=== PATIENT | female | born 2000 | race Caucasian/White ===

== ENCOUNTER 2022-01-10 14:59 | Emergency (ER) | payer OTHER, SELFPAY ==
[2022-01-10] VITALS (24 sets, daily range): BP systolic 104–125; BP diastolic 62–77; PULSE 61–90; RESP 14–19; TEMP 36.6–36.8; O2SAT 92–100
--- NOTE | ~2022-01-10 | CT_ITS ---
EXAMINATION: CT abdomen pelvis w con DATE: 01/10/2022 23:09 INDICATION: Left lower quadrant abdominal pain. TECHNIQUE: Computed tomography (CT) of the abdomen and pelvis was performed with 100 mL Omnipaque 350 intravenous contrast. Automated exposure control and iterative reconstruction technique were employe d. The dose-length product was 201.67 mGy-cm. COMPARISON: None. FINDINGS: The visualized portions of the lung bases are clear without pneumonia or pleural effusion. The heart size is normal. No pericardial effusion. The liver, gallbladder, spleen, pancreas, adrenal glands, and kidneys are normal. There are no dilated loops of bowel. There are changes of appendectom y. There are no pathologically enlarged lymph nodes. There is no free intraperitoneal fluid. The bone s are unremarkable. IMPRESSION: 1. No specific etiology for the patient's symptoms. Reviewed, dictated and finalized at location A.
--- NOTE | ~2022-01-10 | XR_ITS ---
EXAMINATION: XR chest 1V portable Exam Date/Time: 01/10/2022 17:15 CDT HISTORY: cp/ colin, DIZZINESS X TODAY, NO CARDIAC HX, NO LUNG HX Comparison: None available. RESULT: Lines, tubes, and devices: None. Lungs and pleura: Clear. Cardiomediastinal silhouette: Stable. Other: No acute osseous or upper abdominal finding. IMPRESSION: No acute cardiopulmonary process. Reviewed, dictated and finalized at location K.
--- NOTE | ~2022-01-10 | CT_ITS ---
EXAMINATION: CT brain wo con DATE: 01/10/2022 23:03 INDICATION: Headache. Dizziness. TECHNIQUE: Computed tomography (CT) of the head was performed without intravenous contrast. The mA wa s adjusted according to patient size. Iterative reconstruction technique was employed. The dose-lengt h product was 605.33 mGy-cm. COMPARISON: None FINDINGS: There is no intracranial hemorrhage, acute infarction, or abnormal intracranial mass lesion . The ventricles are normal in size. Cavum septum callosum and vergae are noted. The orbits are bella l. The paranasal sinuses are clear. The mastoid air cells are normal. IMPRESSION: 1. Normal brain. Reviewed, dictated and finalized at location A. IMPRESSION: 1. Normal brain.
--- NOTE | 2022-01-10 15:09 | ECG_ITS ---
Measurements Intervals [place] Rate: 73 P: 31 AK: 101 QRS: 78 QRSD: 103 T: 44 QT: 373 QTc: 411 Interpretive Statements SINUS RHYTHM WITH SHORT AK INTERVAL NO PREVIOUS ECG AVAILABLE FOR COMPARISON Electronically Signed On 01-10-2022 19:48:12 CDT by Danielle Wayne M.D.
[2022-01-10 15:42] LABS: Basophils Absolute Auto 0.1 K/mm3 (0.0-0.1); Basophils Percent Auto 0.6 % (0.2-1.2); Eosinophils Percent Auto 0.4 % (0-4.4); Hematocrit 37.1 % (37.0-47.0); Hemoglobin 12.4 g/dL (12.0-15.0); Immature Granulocyte Absolute 0.01 K/mm3 (0.00-0.031); Immature Granulocyte Percent A 0.1 % (0-0.5); Lymphocytes Absolute Auto 1.28 K/mm3 (0.9-3.2); Mean Corpuscular HGB Conc 33.4 g/dl (32-36); Mean Corpuscular Hemoglobin 30.7 pg (26-34); Mean Corpuscular Volume 91.8 fl (80-100); Mean Platelet Volume 9.8 fl (7.4-10.4); Monocytes Absolute Auto 0.6 K/mm3 (0.1-0.6); Monocytes Percent Auto 6.8 % (2.6-8.5); Neutrophils Absolute Auto 6.6 K/mm3 (1.3-6.7); Neutrophils Percent Auto 77.1 % (45.5-73.1); Platelet Count Result 290 k/mm3 (150-375); Red Blood Count 4.04 M/mm3 (4.2-5.4); Red Cell Distribution Width 11.7 % (11.5-14.5); White Blood Count 8.5 K/mm3 (4.5-10.0)
[2022-01-10 15:49] LABS: Appearance Urine Clear (Clear); Bilirubin Urine Negative (Negative); Blood Urine 1+ (Negative); Color Urine Yellow (Yellow); Glucose Urine UA Negative (Negative); Ketones Urine Negative (Negative); Leukocyte Esterase Ur Negative LEU/UL (Negative); Nitrate Urine Negative (Negative); Protein Urine Negative (Negative); Urobilinogen Urine 0.2 mg/dL (<2.0)
[2022-01-10 16:01] LABS: Mucus Urine Rare /lpf; RBC Urine 0-2 /hpf (0-2); Squamous Epithelial Cell Urine Rare /hpf (Few); WBC Urine 0-3 /hpf
[2022-01-10 16:02] LABS: Add Urine Microscopic? YES
[2022-01-10 16:07] LABS: Alanine Aminotransferase 16 U/L (6-35); Albumin Level 4.8 g/dL (3.7-5.6); Alkaline Phosphatase 55 U/L (45-116); Anion Gap 10 mmol/L (8-16); Aspartate Amino Transferase 30 U/L (14-36); Bilirubin,Total 0.9 mg/dL (0.2-1.3); Blood Urea Nitrogen 11 mg/dL (8-21); Calcium 9.3 mg/dL (8.9-10.7); Carbon Dioxide 23 mmol/L (22-30); Chloride 106 mmol/L (98-107); Estimated CRCL calculation 113 ml/min; Estimated Glomerular Filt Rate > 60; Glucose 96 mg/dL (65-110); Lipase 28 U/L (23-300); Potassium 4.1 mmol/L (3.4-5.0); Sodium 139 mmol/L (134-143)
--- NOTE | 2022-01-10 17:13 | ED.GENADULT ---
HPI - General Adult General Chief complaint: Unspecified Stated complaint: Dizziness Time Seen by Provider: 01/10/22 16:28 History of Present Illness HPI narrative: 21-year-old female with only past medical history of celiac disease states that she was in the shower earlier when she stepped out and started feeling vertigo, she is also endorsing some shortness of breath and chest discomfort. Also some abdominal discomfort and diarrhea. Denies it being positional. Related Data Allergies Allergy/AdvReac Type Severity Reaction Status Date / Time shellfish derived Allergy Anaphylaxis Verified 01/10/22 16:26 Review of Systems Review of Systems: CONST: No fever. HEENT: No sore throat or runny nose C/V: Chest discomfort RESP: Mild shortness of breath GI: Reports abdominal pain, diarrhea : No dysuria. M/S: No joint pain. SKIN: No rash. NEURO: Vertigo, no focal numbness/weakness PSYCH: [No depression] [facility] Past Medical History Medical History (Updated 01/10/22 @ 19:36 by Dominique Baker MD) Celiac disease Social History Social History (Updated 01/10/22 @ 17:37 by Dominique Baker MD) Smoking status: Never smoker Exam Narrative: EXAMINATION OF ORGAN SYSTEMS/BODY AREAS: Constitutional: Vital signs per nursing GENERAL: Resting comfortably in bed HEAD: Normal with no signs of head trauma. EYES: Nystagmus but otherwise EOMI, PERRL ENT: Hearing grossly intact LUNGS: Nonlabored breathing. HEART: [Regular rate and rhythm] ABD: [Soft], [nontender to palpation] EXT: Normal range of motion SKIN: [No rashes or lesions.] NEURO: [Alert and oriented x 3. No gross focal sensory or strength deficits.] Negative Romberg but when tried to ambulate, patient unsteady on her feet PSYCH: Tired affect Course Vital Signs Vital signs: Vital Signs Temperature 98.2 F 01/10/22 15:03 Pulse Rate 71 01/10/22 15:03 Respiratory Rate 14 01/10/22 15:03 Blood Pressure 117/72 01/10/22 15:03 Pulse Oximetry 100 01/10/22 15:03 Temperature 98.2 F 01/10/22 15:03 Pulse Rate 90 01/10/22 18:06 Respiratory Rate 18 01/10/22 18:06 Blood Pressure 117/77 01/10/22 18:06 Pulse Oximetry 100 01/10/22 18:06 Medical Decision Making [facility] Narrative Medical decision making narrative: 21-year-old female presenting with sudden onset vertigo that started at noon today, stable, on exam she does have nystagmus and difficulty ambulating due to the vertigo, but no other focal neurologic deficits, normal voice and cranial nerves II through XII intact, NIH stroke scale of 0. She is treated with meclizine then valium however still unable to ambulate and stumbling when stood up and tried to walk. On HINTS exam this does seem consistent with possible central cause; I feel she should have an MRI for further workup in case of tumor or other cause of her symptoms. Her mother would like her transferred to [place] due to insurance issues; she also does not want CT imaging here due to same reason. D/w [facility] transfer center and Dr. Thrasher. At this time patient would like to leave against medical advice as she cannot afford the testing and hospital stay; I did explain that there may be some financial help for her but she would like to leave; she no longer wants to wait. Explained concern for possible emergent issues including tumor or CVA, patient and family are understanding and able to make their own choices, alert and oriented, and understanding of the consequences of leaving at this time which include worsening symptoms and possible neurologic damage or . AMA paperwork will be filled out. I cannot hold her against her will. They promise they will try to go another ER in the morning in [place]. Vital Signs Vital Signs: Vital Signs Temperature 98.2 F 01/10/22 15:03 Pulse Rate 71 01/10/22 15:03 Respiratory Rate 14 01/10/22 15:03 Blood Pressure 117/72 01/10/22 15:03 Pulse Oximetry 100 01/10/22 15:03 Temperature 98.2 F 0
[2022-01-10] MEDS: MECLIZINE HCL 25 MG TABLET PO ×2 (17:18→21:38)
[2022-01-10] MEDS: diazePAM (*CRX) 5 MG TABLET PO (18:05)
--- NOTE | 2022-01-10 19:14 | PC.NURSE ---
Report received from FRANK Stern. This nurse assumed care of patient at this time.
--- NOTE | 2022-01-10 20:19 | PC.NURSE ---
1952 Patient and her mother verbalized they will leave AMA. When this nurse went in with AMA papers, patient and her mother decided to accept being admitted here. proof carrier went with this nurse to speak about process of admission. Patient stated she needed more time to decide on what to do. Patient stated she wanted to be admitted for an MRI. ERP and proof carrier notified. 2011 Dary from [facility] transfer center calls to inform that the patient has been accepted to [facility] and would need a COVID swab and IV access to be transferred. That the patient would be on a wait list for a bed. This nurse informed Dary of the patients decision to possibly be admitted but they are unsure at this time. Dary stated to call back when patient decides what she would like to do. ERP and proof carrier notified.
[2022-01-10] MEDS: SODIUM CHLORIDE 0.9% IV 1,000 ML 999 ML IV CONT (20:44)
[2022-01-10] MEDS: KETOROLAC 15 MG/ML VIAL (*BKC) IV PUSH (20:45)
[2022-01-10] MEDS: METOCLOPRAMIDE HCL INJ 10 MG/2 ML VIAL IV PUSH (20:45)
[2022-01-10] MEDS: diphenhydrAMINE HCl INJ 50 MG/ML VIAL 25 MG IV PUSH (20:45)
[2022-01-10 21:25] LABS: SARS-CoV-2 RNA PCR Negative
--- NOTE | 2022-01-10 22:55 | PC.NURSE ---
Patient taken to CT via stretcher.
--- NOTE | 2022-01-10 23:10 | PC.NURSE ---
Assumed care of pt at this time. Report taken from Cat Y RN. Pt alert and upright on stretcher. Pt reports abd pain and dizziness have improved since medication administration, but states symptoms are still there. Pt and family updated on POC.
--- NOTE | 2022-01-10 23:57 | PC.NURSE ---
Report given to María MARIE
[2022-01-11] VITALS: PULSE 78; RESP 14; O2SAT 98
[2022-01-11 00:01] VITALS: BP 104/62; PULSE 60; RESP 14; O2SAT 98
[2022-01-11 01:05] VITALS: BP 111/62; PULSE 83; RESP 16; O2SAT 99
== END 2022-01-11 01:07 | disposition home or self-care (01) ==
PROVIDERS: Emergency Medicine; Emergency Provider General Practice
DX: R42 Dizziness and giddiness (principal); R10.32 Left lower quadrant pain; G43.909 Migraine, unspecified, not intractable, without status migrainosus; K90.0 Celiac disease; Z20.822 Contact with and (suspected) exposure to COVID-19; Z53.29 Procedure and treatment not carried out because of patient's decision for other reasons
CPT/HCPCS: 36415; 70450; 71045; 74177; 80053; 81001; 81025; 83690; 85025; 93005; 96361; 96374; 96375; 99284; A4565; A9270; C9803; J1200; J1885; J2765; J7030; Q9967; U0003; U0005

== ENCOUNTER 2022-01-17 15:25 | Emergency (ER) | payer OTHER, SELFPAY ==
[2022-01-17] VITALS (9 sets, daily range): BP systolic 119–132; BP diastolic 64–86; PULSE 84–114; RESP 11–22; TEMP 37; O2SAT 98–100
--- NOTE | 2022-01-17 17:26 | ED.ALLEREA ---
HPI - Allergic Reaction General Chief complaint: Allergic Reaction Stated complaint: allergic reaction Time Seen by Provider: 01/17/22 15:28 History of Present Illness HPI narrative: Patient is a 21-year-old female who presents ER with concerns for allergic reaction. She was at work when she started feel hot and flushed and felt like her throat was swelling shut. She has known allergy to shellfish. She had eaten some fries back in the kitchen but does not know whether there could have been cross-contamination. She gave herself her EpiPen after she started developing rash with her throat swelling. This improved her symptoms. EMS provided patient with Benadryl and Decadron. Feels well at this time. Related Data Allergies Allergy/AdvReac Type Severity Reaction Status Date / Time shellfish derived Allergy Anaphylaxis Verified 01/10/22 16:26 Review of Systems Review of Systems: All systems reviewed & are unremarkable except as noted in HPI and below Constitutional: Constitutional: Denies chills, Denies fatigue and Denies fever(s) ENT: Denies nasal congestion and Reports sore throat Comments: Throat swelling Cardiovascular: Cardiovascular: Denies chest pain, Denies rapid heart rate and Denies radiating jaw, neck or arm pain Respiratory: Respiratory: Denies cough, Denies dyspnea and Denies wheezing Gastrointestinal: Gastrointestinal: Denies abdominal pain, Denies nausea and Denies vomiting PMFSH Past Medical History Medical History (Updated 01/17/22 @ 18:29 by Kareem Singletary MD) Celiac disease Surgical History Surgical History (Updated 01/17/22 @ 18:28 by Kareem Singletary MD) No pertinent past surgical history Social History Social History (Updated 01/10/22 @ 17:37 by Dominique Baker MD) Smoking status: Never smoker Exam Narrative: GENERAL: Well-appearing, well-nourished, and in no acute distress. HEAD: Normocephalic, atraumatic. EYES: PERRL and EOMI. ENT: Mucous membranes moist. No angioedema. Uvula midline nonedematous. Normal tonsils. CHEST: Clear to auscultation. No respiratory distress. HEART: Regular rate and rhythm. Normal peripheral pulses. ABDOMEN: Soft, nontender, nondistended. EXTREMITIES: Normal range of motion. No edema. SKIN: Warm, dry, no rash. NEURO: Alert and oriented x3. PSYCH: Normal mood and affect. Course Course Emergency Course: Patient resting comfortably. Prolonged observation with no rebound. Discharge home. Will refill EpiPen. Vital Signs Vital signs: Vital Signs Temperature 98.6 F 01/17/22 15:22 Pulse Rate 114 H 01/17/22 15:22 Respiratory Rate 18 01/17/22 15:22 Blood Pressure 132/86 01/17/22 15:22 Pulse Oximetry 98 01/17/22 15:22 Temperature 98.6 F 01/17/22 15:22 Pulse Rate 84 01/17/22 17:00 Respiratory Rate 18 01/17/22 17:00 Blood Pressure 122/64 01/17/22 17:00 Pulse Oximetry 99 01/17/22 17:00 Discharge Plan Discharge Clinical Impression: Allergic reaction Patient Disposition: Home, Self-Care Condition: Stable Instructions: Food Allergy (ED) Additional Instructions: Return to the ER if you cannot breathe, you cannot swallow, you have chest pain or shortness of breath, you have additional concerns. Prescriptions: New prednisone 50 mg tablet 50 mg PO DAILY Qty: 6 0RF famotidine [Pepcid] 20 mg tablet 20 mg PO BID Qty: 14 0RF No Action ondansetron 4 mg tablet,disintegrating 4 mg PO Q6H PRN (Reason: nausea and vomiting) Qty: 10 0RF meclizine 25 mg tablet 25 mg PO BID PRN (Reason: dizziness) Qty: 10 0RF Follow-up/Referrals: PHYSICIAN NOT ON STAFF,NONSTAFF [Primary Care Provider] - 1 Week
[2022-01-17] MEDS: FAMOTIDINE 20 MG/2 ML VIAL IV PUSH (18:51)
== END 2022-01-17 18:35 | disposition home or self-care (01) ==
PROVIDERS: Emergency Provider Emergency Medicine
DX: T78.40XA Allergy, unspecified, initial encounter (principal); K90.0 Celiac disease
CPT/HCPCS: 96374; 99284

== ENCOUNTER 2022-01-18 20:39 | Emergency (ER) | payer OTHER, SELFPAY ==
[2022-01-18] VITALS (15 sets, daily range): BP systolic 124–132; BP diastolic 68–82; PULSE 74–93; RESP 12–23; O2SAT 97–100
--- NOTE | 2022-01-18 20:54 | ED.GENADULT ---
HPI - General Adult General Chief complaint: Allergic Reaction Stated complaint: swollen throat Time Seen by Provider: 01/18/22 20:40 History of Present Illness HPI narrative: 21-year-old female presenting the emergency department for reevaluation after allergic reaction. Patient was evaluated in the emergency department yesterday after being exposed to fish. Patient did use her EpiPen yesterday and yesterday she was started on Benadryl and prednisone. Patient did take Zyrtec and prednisone at approximately 5 PM today. Patient states about an hour after taking the prednisone she developed swelling of her throat. Patient presented to the emergency department by EMS for evaluation. Patient states she did have some associated dizziness but denies any difficulty breathing. Patient states it is just hurtsto swallow. Related Data Allergies Allergy/AdvReac Type Severity Reaction Status Date / Time shellfish derived Allergy Anaphylaxis Verified 01/10/22 16:26 Review of Systems Review of Systems: CONSTITUTIONAL: Denies fever, chills, or sweats. EYES: Denies visual changes, redness, or discharge. ENT: See HPI CARDIOVASCULAR: Denies chest pain, palpitations, or edema. RESPIRATORY: Denies cough or dyspnea. GASTROINTESTINAL: Denies abdominal pain, nausea, vomiting, or diarrhea. GENITOURINARY: Denies dysuria or hematuria. SKIN: Denies rash or itching. MUSCULOSKELETAL: Denies back pain, joint pain, or myalgia. NEUROLOGIC: Denies headache, numbness, or weakness. PMFSH Past Medical History Medical History (Updated 01/18/22 @ 22:19 by Eldon Taylor MD) Celiac disease Surgical History Surgical History (Updated 01/17/22 @ 18:28 by Kareem Singletary MD) No pertinent past surgical history Social History Social History (Updated 01/10/22 @ 17:37 by Dominique Baker MD) Smoking status: Never smoker Exam Narrative: APPEARANCE: Well appearing, no pain, no distress, well-nourished. Patient is in no distress HEAD: normocephalic, atraumatic. EYES: PERRLA/EOMI, conjunctivae clear. NOSE: Normal no drainage THROAT: Pharynx clear, no exudate. No stridor. Handling her secretions NECK: Supple. No adenopathy, no masses. RESPIRATORY: Airway patent, respirations nonlabored. Clear to auscultation bilaterally, no rales, rhonchi, wheezing. CARDIOVASCULAR: Regular rate and rhythm without murmurs rubs or gallops. ABDOMINAL: Soft, nontender, nondistended, normal bowel sounds MUSCULOSKELETAL: Moves all extremities. Strength/ROM intact, No edema, No calf tenderness. NEURO: Alert. Cranial nerves II through XII intact. Grossly intact SKIN: Warm, dry. Normal Color Course Course Emergency Course: Patient reports she felt improved during her stay in the emergency department. Patient states that she had no allergy symptoms prior to taking the prednisone. Patient was advised to hold on the prednisone and to continue antihistamines as needed. Patient and parents were comfortable with the plan for discharge and close follow-up. All question concerns were addressed. Patient was well-appearing in no distress at time of discharge. Vital Signs Vital signs: Vital Signs Pulse Rate 83 01/18/22 20:42 Respiratory Rate 14 01/18/22 20:42 Pulse Oximetry 100 01/18/22 20:42 Pulse Rate 90 01/18/22 22:00 Respiratory Rate 14 01/18/22 22:00 Blood Pressure 129/76 01/18/22 21:46 Pulse Oximetry 99 01/18/22 22:00 Oxygen Delivery Room Air 01/18/22 20:44 Medical Decision Making Vital Signs Vital Signs: Vital Signs Pulse Rate 83 01/18/22 20:42 Respiratory Rate 14 01/18/22 20:42 Pulse Oximetry 100 01/18/22 20:42 Pulse Rate 90 01/18/22 22:00 Respiratory Rate 14 01/18/22 22:00 Blood Pressure 129/76 01/18/22 21:46 Pulse Oximetry 99 01/18/22 22:00 Oxygen Delivery Room Air 01/18/22 20:44 Discharge Plan Discharge Clinical Impression: Allergic reaction Patient Disposition: Home, Self-Ca
[2022-01-18] MEDS: SODIUM CHLORIDE 0.9% IV 1,000 ML 999 ML IV CONT (20:59)
== END 2022-01-18 22:47 | disposition home or self-care (01) ==
PROVIDERS: Emergency Provider Emergency Medicine
DX: T78.40XA Allergy, unspecified, initial encounter (principal); K90.0 Celiac disease
CPT/HCPCS: 96360; 99283; J7030

== ENCOUNTER 2022-06-01 12:45 | Emergency (ER) | payer OTHER, SELFPAY ==
[2022-06-01] VITALS (7 sets, daily range): BP systolic 90–157; BP diastolic 50–85; PULSE 83–144; RESP 13–22; TEMP 36.8–37.2; O2SAT 98–100
--- NOTE | 2022-06-01 12:58 | ED.ALLEREA ---
HPI - Allergic Reaction General Chief complaint: Allergic Reaction Stated complaint: Allergic Reaction, took epi pen Time Seen by Provider: 06/01/22 12:52 History of Present Illness HPI narrative: Patient is a 22-year-old female presenting with allergic reaction. Patient states that she is anaphylactic to shellfish products. She ate notches at school today and shortly afterwards she developed throat tightness and shortness of breath. States that she had a diffuse rash as well as some tingling in her hands and tongue. States that she gave herself her EpiPen which has improved her symptoms but she continues to feel like there is some throat swelling. She does not currently feel short of breath. She denies any nausea or vomiting. She denies chest pain or lightheadedness. No further symptoms. Related Data Allergies Allergy/AdvReac Type Severity Reaction Status Date / Time shellfish derived Allergy Severe Anaphylaxis Verified 06/01/22 12:59 famotidine [From Pepcid] AdvReac Dizziness Verified 06/01/22 13:07 Review of Systems Review of Systems: All systems reviewed & are unremarkable except as noted in HPI and below PMFSH Past Medical History Medical History Celiac disease Surgical History Surgical History No pertinent past surgical history Social History Social History Smoking status: Never smoker Exam Narrative: GENERAL: Well-appearing, well-nourished, and in no acute distress. HEAD: Normocephalic, atraumatic. EYES: PERRLA and EOMI. ENT: Nares clear, no rhinorrhea or epistaxis. Mucous membranes moist. no intraoral swelling NECK: Supple. CHEST: Clear to auscultation. No respiratory distress. HEART: Tachycardic, regular rhythm. No murmur heard. Normal peripheral pulses. ABDOMEN: Soft, nontender, nondistended, normal active bowel sounds. EXTREMITIES: Normal range of motion. No edema. SKIN: Warm, dry, no rash NEURO: No focal deficits. Alert and oriented x3. PSYCH: Normal mood and affect. Course Vital Signs Vital signs: Vital Signs Temperature 98.2 F 06/01/22 12:45 Pulse Rate 133 H 06/01/22 12:45 Respiratory Rate 20 06/01/22 12:45 Blood Pressure 157/85 H 06/01/22 12:45 Pulse Oximetry 100 06/01/22 12:45 Oxygen Delivery Room Air 06/01/22 12:45 Temperature 98.9 F 06/01/22 15:37 Pulse Rate 92 06/01/22 18:34 Respiratory Rate 18 06/01/22 18:34 Blood Pressure 108/53 L 06/01/22 18:34 Pulse Oximetry 99 06/01/22 18:34 Oxygen Delivery Room Air 06/01/22 12:45 MDM - Allergic Reaction MDM Narrative Medical decision making narrative: Patient is a 22-year-old female presenting with an allergic reaction. Patient is tachycardic and hypertensive on arrival. She is saturating 100% on room air. I suspect her vital sign abnormalities are related to her recent IM epi dose. She continues to complain of some minor throat tightness so we will give IV fluids, Benadryl, Solu-Medrol. Patient declines Pepcid at this time. Plan to observe her for 6 hours from initial reaction time. Will discharge home with prescription for new EpiPen, and Medrol Dosepak. 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 On reevaluation, the patient is resting comfortably. She denies any recurrent or new symptoms. She will follow-up closely with her dental billing specialist. Appropriate return precautions given. Patient and her mother voiced understanding and are agreeable with plan. Discharged in stable condition. Critical Care Time Critical Care Time Critical Care Time: Yes Total Critical Care Time: 35 Discharge Plan Discharge Clinical Impression: Anaphylaxis Patient Disposition: Home, Self-Care Condition: Stable Instructions: Antibiotic Form, Anaphylaxis (ED) Additional Instructions: Please follow-up cl
[2022-06-01] MEDS: SODIUM CHLORIDE 0.9% IV 1,000 ML 999 ML IV CONT (13:05)
[2022-06-01] MEDS: diphenhydrAMINE HCl INJ 50 MG/ML VIAL IV PUSH (13:05)
[2022-06-01] MEDS: methylPREDNISolone SOD SUCC 125 MG VIAL IV PUSH (13:06)
== END 2022-06-01 18:36 | disposition home or self-care (01) ==
PROVIDERS: Emergency Provider Emergency Medicine; PCP Internal Medicine
DX: T78.2XXA Anaphylactic shock, unspecified, initial encounter (principal); K90.0 Celiac disease; Z91.013 Allergy to seafood
CPT/HCPCS: 96361; 96374; 96375; 99284; J1200; J2930; J7030